=== PATIENT | male | born 1965 | race Caucasian/White ===

== ENCOUNTER 2019-08-14 11:14 | Observation (INO) | payer SELFPAY ==
[2019-08-14] VITALS (7 sets, daily range): BP systolic 111–122; BP diastolic 75–85; PULSE 53–70; RESP 8–18; TEMP 36.2–37.1; O2SAT 98–100; BMI 24.7
--- NOTE | 2019-08-14 12:14 | ED_ITS ---
HPI - General Adult General Chief complaint: Dizziness Stated complaint: black stool dizzy shortness of breath 6 days now Time Seen by Provider: 08/14/19 12:13 Source: patient Mode of arrival: Ambulatory Limitations: no limitations History of Present Illness HPI narrative: Otherwise healthy 53-year-old gentleman presents with positional dizziness and exertional dyspnea. He notes that 5 days ago he had a very black stool had no stool for 2 or 3 days then yesterday had more significant black tarry stool. He has got some generalized abdominal pain were slung the epigastrium. He has no history of GI bleeding, excessive nonsteroidal or aspirin use, he does drink 2-3 drinks a day does not consider it a problem however in the past has considered cutting back. He has not recently taken Pepto-Bismol nor iron supplements.. He denies chest pain, he notes he had an upper respiratory infection about a week ago all symptoms have resolved, no skin rashes no lower extremity edema Related Data Allergies Allergy/AdvReac Type Severity Reaction Status Date / Time No Known Drug Allergies Allergy Verified 08/14/19 11:56 Review of Systems Review of Systems ROS Unobtainable: All systems reviewed & are unremarkable except as noted in HPI and below Patient History Social History Smoking Status: Never smoker Smoking Status: Never smoker alcohol intake frequency: 0-2 drinks per day Substance Use Type: does not use Exam Narrative Exam Narrative: General: Healthy appearing, in no acute distress. Able to give a complete and coherent history. Well-nourished well-developed HEENT: Moist mucous membranes, normal sclera with reactive pupils, Neck: No JVD, supple Respiratory: Lungs are clear to auscultation, no wheezing no rales no rhonchi. Full and symmetrical air movement Cardiac: Regular rate and rhythm, 2/6 diastolic murmur heard along the inferior and apical borders Abdomen: Soft, mild tenderness diffusely with increased tenderness in the ep igastrium. No rebound no guarding. Good bowel tones, no flank pain Skin: Warm and dry, no rashes Neurologic: Grossly neurologically intact with no obvious asymmetries or abnormalities Extremities: No trauma, well perfused Psych: Cooperative, appropriate insight and affect Guaiac positive on rectal exam Initial Vital Signs Initial Vital Signs: Vital Signs Temperature 97.8 F 08/14/19 11:28 Pulse Rate 70 08/14/19 11:28 Respiratory Rate 14 08/14/19 11:28 Blood Pressure 118/78 08/14/19 11:28 Pulse Oximetry 99 08/14/19 11:28 Course Course Course Narrative: With guaiac-positive stool and symptoms as described in the HPI initial presumption is a GI bleed. Order sets as well as IV proton pump inhibitors were started. While attached to the monitors he gets up to the bedside to use a urinal and has a couple of seconds of what looks like either nonsustained V-tach or torsade. He was symptomatic with this. Rhythm strip is incorporated into the chart. Decision to Admit Date: 08/14/19 Decision to Admit time: 12:34 Orders Ordered: ED Orders 08/14/19 12:06 Complete Blood Count AUTO DIFF Stat Comprehensive Metabolic Panel Stat Lipase Stat Magnesium Stat Partial Thromboplastin Time Stat Prothrombin Time INR Stat Type and Screen Stat Pantoprazole Sodium 80 mg/ (Sodium Chloride) 100 mls @ 10 mls/hr IV CONT MARIANNE Last Admin: 08/14/19 12:49 Dose: 8 mg/hr, 10 mls/hr Documented by: JOE Sodium Chloride (Normal Saline 0.9%) 1,000 mls @ 1,000 mls/hr IV BOLUS PRN PRN Reason: Fluid replacement Last Admin: 08/14/19 12:49 Dose: 1,000 mls/hr Documented by: JOE Discontinued Medications Ondansetron HCl (Zofran) 4 mg IV NOW ONE Stop: 08/14/19 12:30 Last Admin: 08/14/19 12:46 Dose: 4 mg Documented by: JOE Pantoprazole Sodium (Protonix) 80 mg IV NOW ONE Stop: 08/14/19 12:30 Last Admin: 08/14/19 12:48 Dose: 80 mg Documented by: JOE Reevaluation(s) Reevaluation #1: Case is reviewed with Dr. Jones. Will consult. Requests NPO. Full admit to medical service Time: 12:39 Reevaluation #2: Labs are reviewed. He is mildly anemic but not needing transfusion. Care was reviewed with the hospitalist, Dr. Candelario who will admit the patient Time: 13:05 Vital Signs Vital signs: Vital Signs - 8 hr 08/14/19 11:28 08/14/19 12:27 Temperature 97.8 F Pulse Rate 70 61 Respiratory Rate 14 16 Blood Pressure 118/78 Blood Pressure [Right Arm] 111/79 Pulse Oximetry 99 100 Medical Decision Making Medical Records Medical records reviewed: Yes I reviewed the patient's medical records. Lab Data Lab results reviewed: Yes I reviewed the patient's lab results. Result diagrams: 08/14/19 12:06 08/14/19 12:06 Labs: Lab Results 08/14/19 08/14/19 08/14/19 Range/Units 12:06 12:06 12:06 WBC 4.1 L (4.5-11.0) X10^3/uL RBC 3.63 L (4.5-5.9) X10^6/uL Hgb 11.3 L (13.5-17.5) g/dL Hct 32.4 L (41-53) % MCV 89.4 (80-100) fL MCH 31.3 (26-34) PG MCHC 35.0 (30-36) % RDW 13.1 (11.6-14.8) % Plt Count 208 (150-400) X10^3/uL Neut % (Auto) 62.0 (50-75) % Lymph % (Auto) 24.9 L (25-40) % [place] % (Auto) 8.3 (3-14) % Eos % (Auto) 4.1 H (2-4) % Baso % (Auto) 0.7 (0-2) % Neut # (Auto) 2500 (4317-2951) /uL Lymph # (Auto) 1000 L (7936-8967) /uL [place] # (Auto) 300 (0-900) /uL Eos # (Auto) 200 (0-450) /uL Baso # (Auto) 0 (0-100) /uL PT 11.3 (10.1-12.7) SECONDS INR 1.0 (0.9-1.3) APTT 29 (26.4-36.2) SECONDS Sodium 140 (137-145) mmol/L Potassium 4.4 (3.4-5.1) mmol/L Chloride 107 (98-107) mmol/L Carbon Dioxide 26 (22-32) mmol/L BUN 17 (9-20) mg/dL Creatinine 0.90 (0.66-1.25) mg/dL Estimated GFR > 60.0 (>60) mL/min BUN/Creatinine Ratio 18.9 (6-22) Glucose 103 H (70-100) mg/dL Calcium 9.0 (8.4-10.2) mg/dL Magnesium 2.0 (1.6-2.3) mg/dL Total Bilirubin 0.8 (0.2-1.3) mg/dL AST 43 (17-59) IU/L ALT 31 (<50) IU/L Alkaline Phosphatase 41 (38-126) U/L Total Protein 6.6 (6.3-8.2) g/dL Albumin 4.0 (3.5-5.0) g/dL Globulin 2.6 (1.7-4.1) g/dL Albumin/Globulin Ratio 1.5 (1.0-2.8) Lipase 99 (23-300) U/L ECG Data Attestation: I personally reviewed and interpreted this ECG as follows: Interpretation: EKG reveals sinus rhythm at a rate of 66. No acute ischemic changes. Normal axis and intervals Discharge Plan Departure Patient Disposition: Admitted as Observation Clinical Impression: Acute upper gastrointestinal bleeding Referrals: En Menchaca MD [Primary Care Provider] -
[2019-08-14 12:39] LABS: Add Manual Diff / Slide Review NO; Basophils Absolute Auto 0 /uL (0-100); Basophils Percent Auto 0.7 % (0-2); Eosinophils Absolute Auto 200 /uL (0-450); Eosinophils Percent Auto 4.1 % (2-4); Hematocrit 32.4 % (41-53); Hemoglobin 11.3 g/dL (13.5-17.5); Lymphocytes Absolute Auto 1000 /uL (1100-4500); Lymphocytes Percent Auto 24.9 % (25-40); Mean Corpuscular Hemoglobin 31.3 PG (26-34); Mean Corpuscular Volume 89.4 fL (80-100); Monocytes Absolute Auto 300 /uL (0-900); Monocytes Percent Auto 8.3 % (3-14); Neutrophils Absolute Auto 2500 /uL (1500-7000); Platelet Count 208 X10^3/uL (150-400); Red Blood Cell Count 3.63 X10^6/uL (4.5-5.9); Red Cell Distribution Width 13.1 % (11.6-14.8); White Blood Cell Count 4.1 X10^3/uL (4.5-11.0)
[2019-08-14 12:40] LABS: Prothrombin Time 11.3 SECONDS (10.1-12.7)
[2019-08-14 12:43] LABS: PTT Partial Thromboplastin Tim 29 SECONDS (26.4-36.2)
[2019-08-14 12:46] LABS: Alanine Aminotransferase 31 IU/L (<50); Albumin Globulin Ratio 1.5 (1.0-2.8); Alkaline Phosphatase 41 U/L (38-126); Aspartate Aminotransferase 43 IU/L (17-59); BUN Creatinine Ratio 18.9 (6-22); Bilirubin Total 0.8 mg/dL (0.2-1.3); Blood Urea Nitrogen 17 mg/dL (9-20); Carbon Dioxide 26 mmol/L (22-32); Chloride 107 mmol/L (98-107); Estimated Glomerular Filt Rate > 60.0 mL/min (>60); Globulin 2.6 g/dL (1.7-4.1); Glucose 103 mg/dL (70-100); HEMOLYSIS 22 (0-50); Lipase 99 U/L (23-300); Potassium 4.4 mmol/L (3.4-5.1); Sodium 140 mmol/L (137-145); Total Protein 6.6 g/dL (6.3-8.2)
[2019-08-14] MEDS: ONDANSETRON 4 MG/2 ML INJ IV (12:46)
[2019-08-14] MEDS: PANTOPRAZOLE 40 MG VIAL 80 MG IV (12:48)
[2019-08-14] MEDS: PANTOPRAZOLE 80 MG in SODIUM CHLORIDE 0.9% 100 ML 10 ML IV (12:49)
[2019-08-14] MEDS: SODIUM CHLORIDE 0.9% 1,000 ML 1000 ML IV (12:49)
--- NOTE | 2019-08-14 14:49 | PC.NURSE ---
Day shift: Pt on AC unit at approx 1440 from ED. Oriented to room and call light. High fall risk for now. Protocols in place and Pt agrees to not get OOB w/o help from staff. Denies chest pain. Pt on tele. IV protonix infusing (from ED care). IV patent. SO in room for support.
--- NOTE | 2019-08-14 15:28 | P.HP_ITS ---
History of Present Illness History of Present Illness Date Patient Seen: 08/14/19 Chief complaint: black stool dizzy shortness of breath 6 days now Narrative: The patient is a 53-year-old male with no prior past medical history who presents with 5 day history of black tarry stool, lightheadedness, shortness of breath. Patient states that on Friday 5 days prior to admission he had 1 dark stool. Two days later he had no further BM. Two days ago he began having to dark stools approximately twice daily. Patient also reported feeling lightheaded with movement. He complained of being short of breath when going up a flight of stairs. Because of the dizziness shortness of breath and stools he presented to the hospital for evaluation. Patient reports about a week ago having a fever which resolved. He also reports having a sore throat. He has had no hematemesis, or bright red blood per rectum, he has no history of gastric ulcers. The patient does not use excessive ibuprofen, and Aleve, Advil. He has not been taking Pepto-Bismol. Patient does admit to drinking 1-2 drinks daily and has had no symptom to suggest alcohol withdrawal. The patient was seen and evaluated in the emergency room. He was guaiac positive, hemoglobin was 11 hematocrit 32. Patient is admitted to the hospital at this time for treatment and evaluation of probable upper GI bleed. Patient History Family & Social History Family History (Updated 08/14/19 @ 15:33 by Luiza Candelario MD) Father Lymphoma Mother Hypertension Diabetes mellitus Safety & Behavioral: Feels Safe in Current Yes Environment Been Physically Hurt or No Threatened By a Person Tobacco & Substance use: Smoking Status Never smoker alcohol intake frequency 0-2 drinks per day Substance Use Type does not use Meds Home Medications and Allergies Allergies Allergy/AdvReac Type Severity Reaction Status Date / Time No Known Drug Allergies Allergy Verified 08/14/19 11:56 Review of Systems Review of Systems ROS Unobtainable: All systems reviewed & are unremarkable except as noted in HPI and below Exam Vital Signs (past 8 hours): - 08/14/19 11:28 08/14/19 12:27 08/14/19 13:00 Temperature 97.8 F Pulse Rate 70 61 53 L Respiratory Rate 14 16 8 L Blood Pressure 118/78 Blood Pressure [Right Arm] 111/79 113/80 Pulse Oximetry 99 100 100 08/14/19 14:00 08/14/19 14:45 Temperature 97.2 F L Pulse Rate 55 L 56 L Respiratory Rate 16 18 Blood Pressure 122/85 Blood Pressure [Right Arm] 115/81 Pulse Oximetry 100 100 Oxygen Delivery Method Room Air Oxygen Flow Rate 0 Narrative Exam Narrative: Pleasant male resting comfortably in no obvious distress HEENT: Normocephalic atraumatic, extraocular muscles are intact, oropharynx is clear, mucosal membranes are somewhat pale. Neck is supple, there is no submandibular or anterior cervical adenopathy. Lungs: Clear to auscultation Cardiac exam: Regular rate and rhythm normal S1-S2 Abdomen: Scaphoid soft mildly tender in the midepigastric area, no palpable masses, no rebound tenderness, no board-like rigidity, no hepatosplenomegaly noted Extremities: No edema Neuro exam: Cranial nerves 2-12 are intact, strength is symmetric and equal, sensation is grossly intact, reflexes are equal, gait is not assessed Psychiatric exam: Patient is awake and alert, answers questions appropriately, has no evidence of delusions or hallucinations. Skin exam: No lesion Objective Labs Result Diagrams: 08/14/19 12:06 08/14/19 12:06 Labs: Laboratory Results - last 24 hr 08/14/19 08/14/19 08/14/19 12:06 12:06 12:06 WBC 4.1 L RBC 3.63 L Hgb 11.3 L Hct 32.4 L MCV 89.4 MCH 31.3 MCHC 35.0 RDW 13.1 Plt Count 208 Neut % (Auto) 62.0 Lymph % (Auto) 24.9 L [place] % (Auto) 8.3 Eos % (Auto) 4.1 H Baso % (Auto) 0.7 Neut # (Auto) 2500 Lymph # (Auto) 1000 L [place] # (Auto) 300 Eos # (Auto) 200 Baso # (Auto) 0 PT 11.3 INR 1.0 APTT 29 Sodium 140 Potassium 4.4 Chloride 107 Carbon Dioxide 26 BUN 17 Creatinine 0.90 Estimated GFR > 60.0 BUN/Creatinine Ratio 18.9 Glucose 103 H Calcium 9.0 Magnesium 2.0 Total Bilirubin 0.8 AST 43 ALT 31 Alkaline Phosphatase 41 Total Protein 6.6 Albumin 4.0 Globulin 2.6 Albumin/Globulin Ratio 1.5 Lipase 99 Blood Type Antibody Screen 12/14/19 12:06 WBC RBC Hgb Hct MCV MCH MCHC RDW Plt Count Neut % (Auto) Lymph % (Auto) [place] % (Auto) Eos % (Auto) Baso % (Auto) Neut # (Auto) Lymph # (Auto) [place] # (Auto) Eos # (Auto) Baso # (Auto) PT INR APTT Sodium Potassium Chloride Carbon Dioxide BUN Creatinine Estimated GFR BUN/Creatinine Ratio Glucose Calcium Magnesium Total Bilirubin AST ALT Alkaline Phosphatase Total Protein Albumin Globulin Albumin/Globulin Ratio Lipase Blood Type A Positive Antibody Screen Negative Assessment & Plan Assessment and plan (1) Acute upper gastrointestinal bleeding: Problem details: 53-year-old male admitted to the hospital with symptomatic upper GI bleeding. Patient has had 5 days of dark hours stool, shortness of breath, and dizziness. Suspect the patient has ongoing upper GI bleeding. He also has some mid epigastric pain. His hemoglobin and hematocrit are within normal limits. He does not require transfusion at this time. However the patient is highly symptomatic. We will obtain serial hematocrits, continue with the proton pump inhibitor, continue with IV hydration. General surgery has been consulted and plans are underway for the patient to have upper endoscopy tomorrow. He will be kept NPO. The patient is a full code and will note that his record accordingly. Current visit: Yes Status: Acute
[2019-08-14] MEDS: DEXTROSE 5%-0.9% NS 1,000 ML 100 ML IV (16:09)
[2019-08-14 17:53] LABS: Add Manual Diff / Slide Review NO; Basophils Absolute Auto 0 /uL (0-100); Basophils Percent Auto 0.8 % (0-2); Eosinophils Absolute Auto 100 /uL (0-450); Eosinophils Percent Auto 2.7 % (2-4); Hematocrit 31.5 % (41-53); Hemoglobin 10.9 g/dL (13.5-17.5); Lymphocytes Absolute Auto 1300 /uL (1100-4500); Lymphocytes Percent Auto 26.3 % (25-40); Mean Corpuscular HGB Conc 34.5 % (30-36); Mean Corpuscular Hemoglobin 30.9 PG (26-34); Mean Corpuscular Volume 89.8 fL (80-100); Monocytes Absolute Auto 400 /uL (0-900); Monocytes Percent Auto 7.4 % (3-14); Neutrophils Absolute Auto 3000 /uL (1500-7000); Neutrophils Percent Auto 62.8 % (50-75); Platelet Count 193 X10^3/uL (150-400); Red Blood Cell Count 3.51 X10^6/uL (4.5-5.9); Red Cell Distribution Width 13.1 % (11.6-14.8); White Blood Cell Count 4.8 X10^3/uL (4.5-11.0)
[2019-08-14 18:14] LABS: HEMOLYSIS < 15 (0-50); Iron 50 ug/dL (49-181)
[2019-08-14 18:24] LABS: Percent Iron Saturation 16 % (20-50); Total Iron Binding Capacity 319 ug/dL (261-462); Transferrin 242 mg/dL (206-381)
--- NOTE | 2019-08-14 19:06 | PC.NURSE ---
Assumed care of pt at 1500. Pt resting in bed during bedside hand-off. Rec call from ICU stating HR dips down to 40's. Upon assessing pt HR mid 50's. HR is now presently 57; Pt at rest in bed. Pt also reports he is a runner. Dizziness resolved. Calm and cooperative with care. Using urinal to void. IVF infusing per orders. NPO. Oral care set-up. Pt able to complete oral care independently. Calling appropriately for needs. SCD's on per orders.
[2019-08-15] VITALS (12 sets, daily range): BP systolic 95–119; BP diastolic 55–83; PULSE 53–80; RESP 9–18; TEMP 36.4–36.9; O2SAT 92–99
--- NOTE | 2019-08-15 | PATH_ITS ---
[facility] Accession Number: [id number] . 01 Material submitted: . gastrointestinal site - ANTRUM . 01 Clinical history: . BLACK STOOL. DIZZY. SHORTNESS OF BREATH 6 DAYS NOW. . 02 Diagnosis: Antrum, Biopsy: Gastric antral mucosa with mild chronic inflammation. Negative for Helicobacter organisms by immunohistochemistry. Negative for intestinal metaplasia. Negative for dysplasia or malignancy. [facility] 08/18/2019 1416 Local . 02 Electronically signed: . Akhil Babcock MD, PhD, Pathologist NPI- [id number] . 01 Gross description: . ANTRUM: Received in formalin is 1 fragment(s) of golden, soft tissue measuring 0.2 x 0.2 x 0.2 cm submitted entirely in 1 cassette(s) /[facility] 08/16/20192005 Local . 02 Microscopic: . An immunohistochemical stain was performed to evaluate for Helicobacter organisms and is negative. The control stain showed appropriate reactivity. . * This test was developed and its performance characteristics determined by [facility]. It has not been cleared or approved by the U.S. Food and Drug Administration. The FDA has determined that such clearance or approval is not necessary. This test is used for clinical purposes. It should not be regarded as investigational or for research. . 02 Pathologist provided ICD-10: K29.70 . 02 CPT . 013143, [id number] Performed at: 01 [facility] [address], [place], [place] [id number] MD Jorgito Purvis MD Phone: [phone] Performed at: 02 [facility] [place] [address] [place], [place] [id number] MD Nina Fuentes MD Phone: [phone]
[2019-08-15] MEDS: DEXTROSE 5%-0.9% NS 1,000 ML 100 ML IV ×2 (01:19→11:58)
[2019-08-15 06:19] LABS: Hematocrit 30.6 % (41-53); Mean Corpuscular HGB Conc 35.8 % (30-36); Mean Corpuscular Hemoglobin 31.6 PG (26-34); Mean Corpuscular Volume 88.4 fL (80-100); Platelet Count 194 X10^3/uL (150-400); Red Blood Cell Count 3.46 X10^6/uL (4.5-5.9); Red Cell Distribution Width 13.2 % (11.6-14.8); White Blood Cell Count 4.1 X10^3/uL (4.5-11.0)
--- NOTE | 2019-08-15 06:32 | PC.NURSE ---
Pt is AxOx3, VSS, denies pain. Reports some dizziness overnight; instructed not to get OOB without assistance. Kept NPO for EGD in AM No BMs overnight. D5NS@100mL/hr Protonix gtt @10mL/hr b/l SCDs on Tele: SB
[2019-08-15 06:39] LABS: Blood Urea Nitrogen 11 mg/dL (9-20); Calcium 8.5 mg/dL (8.4-10.2); Carbon Dioxide 26 mmol/L (22-32); Chloride 108 mmol/L (98-107); Estimated Glomerular Filt Rate > 60.0 mL/min (>60); Glucose 105 mg/dL (70-100); HEMOLYSIS < 15 (0-50); Potassium 3.9 mmol/L (3.4-5.1); Sodium 140 mmol/L (137-145)
[2019-08-15] MEDS: PANTOPRAZOLE 80 MG in SODIUM CHLORIDE 0.9% 100 ML 10 ML IV ×2 (09:38)
--- NOTE | 2019-08-15 10:01 | PC.NURSE ---
Addendum entered by Sandi Covarrubias R.N. 08/15/19 12:00: Patient back from EGD alert, oriented denies pain and nausea. Addendum entered by Sandi Covarrubias R.N. 08/15/19 10:43: Patient taken down for EGD. Original Note: Patient alert, oriented, denies pain, nausea and shortness of breath. SBA to chair, gait steady denies dizziness. Dr Leong in to assess patient.
[2019-08-15] MEDS: LACTATED RINGERS 1,000 ML 42 ML IV (10:30)
--- NOTE | 2019-08-15 10:47 | PM.OP.ENDO ---
Operative Date/Time/Diagnoses Date of procedure: 08/15/19 Time of procedure: 10:48 Pre-op diagnosis: Upper GI bleeding Post-op diagnosis: other (No evidence of upper GI bleeding or source of upper GI bleeding) Procedure & Clinicians Study performed: Esophagogastric duodenoscopy with gastric biopsy for H pylori Same procedure as scheduled: Yes Surgeon: Kevin Walsh Procedure Notes SCOAP/Timeout: This was done Procedure in detail: I was asked see the patient in consultation with a 1 week history of painless melena. Patient no prior history of ulcer disease is not taking medications to contribute to gastric or upper GI bleeding. After informed consent I performed esophagogastroduodenoscopy today. The findings are normal esophagus normal stomach normal pylorus normal duodenum to the 2nd portion no findings of any blood old blood fresh blood or any GI bleeding source. Procedure the patient was given a general endotracheal anesthetic he was properly identified during surgical pause flexible fiberoptic gastroscope inserted trans orally from the hypopharynx into the 2nd portion of the duodenum the esophagus is normal the EG junction is at 40 cm retroflex thing the scope reveals a normal gastric side of the EG junction entire stomach is normal there is no blood within the gastric lumen the pyloric channel is normal there is no blood there there is no duodenal ulcer in the 1st or 2nd portion the duodenum or the duodenal bulb on retrieving the scope I did a gastric biopsy for H pylori in the gastric antrum the procedure was well tolerated the patient needs a colonoscopy to evaluate for possible cecal carcinoma Scope withdrawal time: 5 Sedation minutes: 15 Specimen(s): other (Gastric biopsy or a for H pylori) Complications: none Post-procedure Disposition: PACU
--- NOTE | 2019-08-15 11:00 | SUR.PHASEI ---
Assumed care at 1059. VS stable.
[2019-08-15] MEDS: BENZOCAINE/MENTHOL 1 LOZ PKT 1 EACH PO (11:15)
--- NOTE | 2019-08-15 11:18 | SUR.PHASEI ---
Patient reported sore thoat improving
--- NOTE | 2019-08-15 11:42 | SUR.PHASEI ---
Patient transferred to the floor. Report to Sandi. VS stable. IV saline locked.
--- NOTE | 2019-08-15 11:42 | SUR.PHASEI ---
Patient swallowed ice/water without difficulty
[2019-08-15] MEDS: BISACODYL 5 MG TABLET PO (13:11)
[2019-08-15] MEDS: PEG3350/SOD SULF,BICARB,CL/KCL 4,000 ML SOLUTION 4000 ML PO (13:34)
[2019-08-15] MEDS: SODIUM CHLORIDE 0.9% 1,000 ML 100 ML IV ×2 (13:34→22:37)
[2019-08-15] MEDS: IRON SUCROSE 200 MG in SODIUM CHLORIDE 0.9% 100 ML 220 ML IV (14:05)
--- NOTE | 2019-08-15 14:49 | PM.PN.1 ---
Subjective Subjective Date Patient Seen: 08/15/19 Interval history: The patient is a 53-year-old male with no prior medical history who presented to the hospital with dizziness shortness of breath, and fatigue. Patient was found to have guaiac-positive melanotic stool. He reported having a week of painless melena. The patient has had no hematemesis since being in the hospital. He has had past no further stool. He underwent an upper endoscopy today which was negative for any source of GI bleeding. He has been receiving IV fluids and has had some delusional drop in his hemoglobin. Iron studies reveal mild iron deficiency anemia. The patient is now receiving IV iron and currently undergoing colon prep for colonoscopy to rule out a cecal carcinoma tomorrow. Patient reports he remains dizzy although it's improved. Exam Vital Signs (past 8 hours): - 08/15/19 07:34 08/15/19 10:52 08/15/19 10:57 Temperature 98.2 F Pulse Rate 53 L 76 72 Respiratory Rate 14 13 9 L Blood Pressure 107/68 100/62 95/67 Pulse Oximetry 98 96 96 08/15/19 11:02 08/15/19 11:07 08/15/19 11:17 Temperature Pulse Rate 80 69 65 Respiratory Rate 10 L 11 L 10 L Blood Pressure 105/75 110/76 110/79 Pulse Oximetry 92 97 98 08/15/19 11:36 Temperature Pulse Rate 61 Respiratory Rate 16 Blood Pressure 111/79 Pulse Oximetry 97 Oxygen Delivery Method Room Air Oxygen Flow Rate 0 Narrative Exam Narrative: Pleasant male lying in bed in no obvious distress Lungs: Clear to auscultation Cardiac exam: Regular rate and rhythm normal S1-S2 Abdomen: Soft nondistended, mild tenderness in the right upper quadrant, no palpable masses no hepatosplenomegaly, no board-like rigidity Extremities: No edema Skin exam: No lesion Objective Labs Result Diagrams: 08/15/19 06:00 08/15/19 06:00 Labs: Laboratory Results - last 24 hr 08/14/19 08/14/19 08/15/19 17:40 17:40 06:00 WBC 4.8 RBC 3.51 L Hgb 10.9 L Hct 31.5 L MCV 89.8 MCH 30.9 MCHC 34.5 RDW 13.1 Plt Count 193 Neut % (Auto) 62.8 Lymph % (Auto) 26.3 [place] % (Auto) 7.4 Eos % (Auto) 2.7 Baso % (Auto) 0.8 Neut # (Auto) 3000 Lymph # (Auto) 1300 [place] # (Auto) 400 Eos # (Auto) 100 Baso # (Auto) 0 Sodium 140 Potassium 3.9 Chloride 108 H Carbon Dioxide 26 BUN 11 Creatinine 1.00 Estimated GFR > 60.0 BUN/Creatinine Ratio 11.0 Glucose 105 H Calcium 8.5 Iron 50 TIBC 319 % Saturation 16 L Transferrin 242 08/15/19 06:00 WBC 4.1 L RBC 3.46 L Hgb 11.0 L Hct 30.6 L MCV 88.4 MCH 31.6 MCHC 35.8 RDW 13.2 Plt Count 194 Neut % (Auto) Lymph % (Auto) [place] % (Auto) Eos % (Auto) Baso % (Auto) Neut # (Auto) Lymph # (Auto) [place] # (Auto) Eos # (Auto) Baso # (Auto) Sodium Potassium Chloride Carbon Dioxide BUN Creatinine Estimated GFR BUN/Creatinine Ratio Glucose Calcium Iron TIBC % Saturation Transferrin Assessment & Plan Assessment & Plan narrative: Impression 1. Melanotic stool, initially thought to be upper GI bleeding, however EGD is negative for any source of upper GI bleeding patient does have mild iron deficiency anemia. Suspect ongoing slow bleeding possibly from the colon. Patient remains symptomatic. He will continue on IV hydration, will repeat his hematocrit and hemoglobin today. His proton pump inhibitor has been discontinued as he has no source of upper GI bleeding. Telemetry has been discontinued as well. Plan for today: Continue colon prep, repeat hemoglobin hematocrit, continue IV hydration, clear liquid diet.
[2019-08-15] MEDS: ACETAMINOPHEN 325 MG TABLET 650 MG PO (15:42)
--- NOTE | 2019-08-15 16:06 | CM.DANOTE ---
Discharge Planning/Care Management DCP: assessment: case received, EMR reviewed. Discussed in Team Rounds. Pt is a 53 year old male who admitted yesterday afternoon to care of hospitalist team. PCP: listed as Dr. Menchaca: unclear if current and Dr. Candelario has continued to follow pt today. Pt was admitted with a s/s GI bleed and Dr. Candelario noted in Rounds that surgeon Dr. Walsh was taking pt to surgery for an EGD. A check in later after Rounds showed pt off the floor for the EGD. Payer: Commercial Insurance. Admission status: OBS: per [facility] ALEX Nuñez. A check in now of Dr. Candelario's progress note reveals that pt is now undergoing colon prep for a colonoscopy tomorrow for rule out cecal carcinoma. Due to lateness of hour must defer a meeting with pt to the DCP team on for tomorrow. Status: Active Protocol: Document 08/15/19 16:04 ITV (Rec: 08/15/19 16:06 ITV [id number]) Discharge Planning Assessment Advance Directives? No History Provided By Medical Record Prior Living Arrangements House Household Members spouse Independent with ADL's Yes Is patient alert and oriented? Yes Review Status In Process
[2019-08-15 17:56] LABS: Hematocrit 34.6 % (41-53); Hemoglobin 11.8 g/dL (13.5-17.5)
--- NOTE | 2019-08-15 19:50 | PC.NURSE ---
Late entry 1700 - Pt reports headache pain 8/10 not relieved by tylenol. Requested stronger medication from Dr Candelario. TO Dr Candelario reports she will order [place] 1900 - Pt reports headache decreasing now and tolerable after drinking some broth. Denies offer for [place]. TM
[2019-08-15] MEDS: ACETAMINOPHEN 325 MG TABLET 975 MG PO (22:38)
[2019-08-16] VITALS: BP 122/78; PULSE 52; RESP 16; TEMP 36.8; O2SAT 97
[2019-08-16 04:00] VITALS: BP 106/69; PULSE 53; RESP 16; TEMP 36.6; O2SAT 98
[2019-08-16 06:33] LABS: Blood Urea Nitrogen 8 mg/dL (9-20); Calcium 8.3 mg/dL (8.4-10.2); Carbon Dioxide 28 mmol/L (22-32); Chloride 107 mmol/L (98-107); Estimated Glomerular Filt Rate > 60.0 mL/min (>60); Glucose 95 mg/dL (70-100); HEMOLYSIS < 15 (0-50); Potassium 3.5 mmol/L (3.4-5.1); Sodium 141 mmol/L (137-145)
[2019-08-16 06:38] LABS: Add Manual Diff / Slide Review NO; Basophils Absolute Auto 0 /uL (0-100); Basophils Percent Auto 0.3 % (0-2); Eosinophils Absolute Auto 200 /uL (0-450); Eosinophils Percent Auto 3.6 % (2-4); Hematocrit 29.4 % (41-53); Hemoglobin 10.5 g/dL (13.5-17.5); Lymphocytes Absolute Auto 1200 /uL (1100-4500); Mean Corpuscular HGB Conc 35.8 % (30-36); Mean Corpuscular Hemoglobin 31.7 PG (26-34); Mean Corpuscular Volume 88.5 fL (80-100); Monocytes Absolute Auto 300 /uL (0-900); Monocytes Percent Auto 7.4 % (3-14); Neutrophils Absolute Auto 2700 /uL (1500-7000); Neutrophils Percent Auto 61.7 % (50-75); Platelet Count 187 X10^3/uL (150-400); Red Blood Cell Count 3.32 X10^6/uL (4.5-5.9); Red Cell Distribution Width 13.2 % (11.6-14.8); White Blood Cell Count 4.4 X10^3/uL (4.5-11.0)
[2019-08-16] MEDS: SODIUM CHLORIDE 0.9% 1,000 ML 100 ML IV (07:37)
--- NOTE | 2019-08-16 07:55 | PC.NURSE ---
Addendum entered by Sandi Covarrubias R.N. 08/16/19 14:04: Went over discharge orders and instructions with patient,questions answered. NO rx for new meds ordered, patient had all belongings. Addendum entered by Sandi Covarrubias R.N. 08/16/19 13:45: Patient back from colonoscopy, brought up by wheelchair, alert, oriented denies pain, nausea. Eating general diet without difficulties. Denies dizziness. Dr Michaud in to see patient, patient being discharged. Original Note: Patient up to bathroom, had liquid stool, light brown in color. Denies pain and dizziness.
[2019-08-16 08:00] VITALS: BP 109/75; PULSE 61; RESP 16; TEMP 36.6; O2SAT 97
[2019-08-16 10:27] VITALS: BP 121/78; PULSE 55; RESP 16; TEMP 36.3; O2SAT 100; BMI 24.7
[2019-08-16] MEDS: SODIUM CHLORIDE 0.9% 1,000 ML 200 ML IV (11:15)
--- NOTE | 2019-08-16 11:37 | P.PN_ITS ---
Subjective Subjective Date Patient Seen: 08/16/19 Time Patient Seen: 11:37 Interval history: No blood per rectum or hematemesis over the past 24 hours. No nausea vomiting or abdominal pain. I reviewed his EGD report from yesterday which was negative. Exam Vital Signs (past 8 hours): - 08/16/19 04:00 08/16/19 08:00 08/16/19 10:27 Temperature 97.8 F 97.9 F 97.4 F L Pulse Rate 53 L 61 55 L Respiratory Rate Blood Pressure 106/69 109/75 121/78 Pulse Oximetry 98 97 100 Oxygen Delivery Method Room Air Oxygen Flow Rate 0 Narrative Exam Narrative: General-no acute distress, well nourished HEENT-moist mucous membranes, no scleral icterus Neck-supple, no lymphadenopathy Chest- non labored respirations, clear to auscultation bilaterally Cardiac-regular rate no peripheral edema Abdomen-soft, nontender, non distended Extremities-warm, well perfused Neurological-alert and oriented, no focal deficits Objective Labs Result Diagrams: 08/16/19 06:02 08/16/19 06:02 Labs: Laboratory Results - last 24 hr 08/15/19 08/16/19 08/16/19 17:50 06:02 06:02 WBC 4.4 L RBC 3.32 L Hgb 11.8 L 10.5 L Hct 34.6 L 29.4 L MCV 88.5 MCH 31.7 MCHC 35.8 RDW 13.2 Plt Count 187 Neut % (Auto) 61.7 Lymph % (Auto) 27.0 [place] % (Auto) 7.4 Eos % (Auto) 3.6 Baso % (Auto) 0.3 Neut # (Auto) 2700 Lymph # (Auto) 1200 [place] # (Auto) 300 Eos # (Auto) 200 Baso # (Auto) 0 Sodium 141 Potassium 3.5 Chloride 107 Carbon Dioxide 28 BUN 8 L Creatinine 1.00 Estimated GFR > 60.0 BUN/Creatinine Ratio 8.0 Glucose 95 Calcium 8.3 L Assessment & Plan Assessment and plan (1) Acute upper gastrointestinal bleeding: Problem details: 53-year-old male admitted to the hospital with symptomatic upper GI bleeding. Patient has had 5 days of dark hours stool, shortness of breath, and dizziness. Suspect the patient has ongoing upper GI bleeding. He also has some mid epigastric pain. His hemoglobin and hematocrit are within normal limits. He does not require transfusion at this time. However the patient is highly symptomatic. We will obtain serial hematocrits, continue with the proton pump inhibitor, continue with IV hydration. General surgery has been consulted and plans are underway for the patient to have upper endoscopy tomorrow. He will be kept NPO. The patient is a full code and will note that his record accordingly. Current visit: Yes Status: Acute Assessment & Plan narrative: 53-year-old male with melanotic stools and a negative EGD yesterday hemodynamically stable not requiring transfusion hematocrit stable. Will perform colonoscopy. We discussed the risks of procedure including misdiagnosis bleeding infection perforation need for further procedure. His questions have been answered and he is in agreement with this plan.
--- NOTE | 2019-08-16 11:50 | SUR.OPER ---
GLASSES IN LABELED BAG TO PACU WITH PATIENT
[2019-08-16] MEDS: fentaNYL 250 MCG/5 ML INJ IV (12:04)
--- NOTE | 2019-08-16 12:05 | PM.OP.ENDO ---
Operative Date/Time/Diagnoses Date of procedure: 08/16/19 Time of procedure: 12:05 Pre-op diagnosis: GI bleed Post-op diagnosis: same Procedure & Clinicians Study performed: Colonoscopy Same procedure as scheduled: Yes Indications: 53-year-old male admitted to hospital with melanotic stools underwent an EGD yesterday which was normal and presents today for diagnostic colonoscopy. Hemodynamically stable not require transfusion. Surgeon: Kris Weeks Procedure Notes SCOAP/Timeout: Perform Procedure in detail: Patient placed in left lateral decubitus position. Time out was performed. Procedural sedation was administered with Versed and Fentanyl. A rectal exam demonstrated no external hemorrhoids no internal masses. Colonoscopy scope was placed into the rectum and advanced through the colon to the cecum. The ileocecal valve was identified. The scope was then slowly withdrawn examining colon thoroughly in all directions. The colonoscopy was notable for the following 1. No masses or polyps 2. No evidence of bleeding. 3. Sigmoid diverticulosis. Scope withdrawal time: 7 Sedation minutes: 21 Findings: diverticulosis Complications: none Impression: Diverticulosis. Post-procedure Recommendations: Colonscopy in 10 years
[2019-08-16] MEDS: MIDAZOLAM 5 MG/5 ML VIAL IV (12:06)
[2019-08-16 12:12] VITALS: BP 88/41; PULSE 67; RESP 22; O2SAT 100
[2019-08-16 12:17] VITALS: BP 111/74; PULSE 66; RESP 15; O2SAT 100
--- NOTE | 2019-08-16 12:55 | P.DS_ITS ---
History of Present Illness History of Present Illness Date Patient Seen: 08/14/19 Chief complaint: black stool dizzy shortness of breath 6 days now Narrative: Written by Dr. Candelario: The patient is a 53-year-old male with no prior past medical history who presents with 5 day history of black tarry stool, lightheadedness, shortness of breath. Patient states that on Friday 5 days prior to admission he had 1 dark stool. Two days later he had no further BM. Two days ago he began having to dark stools approximately twice daily. Patient also reported feeling lightheaded with movement. He complained of being short of breath when going up a flight of stairs. Because of the dizziness shortness of breath and stools he presented to the hospital for evaluation. Patient reports about a week ago having a fever which resolved. He also reports having a sore throat. He has had no hematemesis, or bright red blood per rectum, he has no history of gastric ulcers. The patient does not use excessive ibuprofen, and Aleve, Advil. He has not been taking Pepto-Bismol. Patient does admit to drinking 1-2 drinks daily and has had no symptom to suggest alcohol withdrawal. The patient was seen and evaluated in the emergency room. He was guaiac positive, hemoglobin was 11 he matocrit 32. Patient is admitted to the hospital at this time for treatment and evaluation of probable upper GI bleed. Discharge Providers Provider Date of admission: 08/14/19 13:51 Discharge Date: 08/16/19 Primary care physician: En Menchaca MD Consults: 08/15/19 09:59 Consult to Physician Routine Comment: Consulting Provider: Kevin Walsh Reason for consultation: gi bleed Has provider been notified: Yes 08/15/19 10:08 Consult to General Surgery Routine Comment: Consulting Provider: Kevin Walsh Reason for consultation: egd Discharge provider: Etelvina Michaud DO Summary Hospital Course Discharge Diagnosis: 1. Acute GI bleed, present on admission. Resolved. 2. Acute blood loss and iron deficiency anemia, present on admission. Active. Hospital Course: Marcus Le is a 53-year-old male with no prior past medical history who presented to the ED with 5 day history of black tarry stool, lightheadedness, shortness of breath. 1. Acute GI bleed, present on admission. Resolved. -Patient presented with 5 day history of black tarry stool, lightheadedness, and shortness of breath. -Initially thought to be upper GI bleeding, however, EGD was negative for any source of upper GI bleeding. Suspect ongoing slow bleeding possibly from the colon. Patient remains symptomatic. -Continued IV fluid hydration until adequately hydrated then discontinued. -Discontinued PPI as he has no source of upper GI bleeding. -Telemetry has been discontinued as patient has a very slow bleed and is hemodynamically stable. -Consulted general Surgery, Dr. Walsh, who performed EGD which was negative. Dr. Weeks performed colonoscopy which was negative for source of GI bleed and only abnormality was sigmoid diverticulosis. Recommend outpatient referral to GI for possible pill endoscopy and further evaluation of melena. May also want to consider other etiologies of shortness of breath and lightheadedness such as cardiac. 2. Acute blood loss and iron deficiency anemia, present on admission. Active. -Initial hemoglobin and hematocrit 11.3 and 32.4. Trended down to 10.5 likely hemodilutional as he has had no further melena and received IV fluids as above. -Iron studies revealed mild iron deficiency and patient received Venofer 200 mg IV x 1. Exam Vital Signs (past 8 hours): - 08/16/19 08:00 08/16/19 10:27 08/16/19 12:12 Temperature 97.9 F 97.4 F L Pulse Rate 61 55 L 67 Respiratory Rate 16 16 22 Blood Pressure 109/75 121/78 88/41 L Pulse Oximetry 97 100 100 08/16/19 12:17 Temperature Pulse Rate 66 Respiratory Rate 15 Blood Pressure 111/74 Pulse Oximetry 100 Oxygen Delivery Method Room Air Oxygen Flow Rate 0 Narrative Exam Narrative: General: Middle-aged gentleman sitting in bed and in no acute distress, well- developed, well-nourished, appropriately interactive. HEENT: Normocephalic, atraumatic. External ears without defect. Pupils equal, round, and reactive to light. Anicteric sclerae, moist conjunctivae, and no lid lag. Neck: Supple with full range of motion. No lymphadenopathy or thyromegaly. Cardiovascular: Regular rate and rhythm without murmurs, rubs, or gallops appreciated. Pulmonary: Clear to auscultation bilaterally without crackles, wheezes, or rhonchi. Normal respiratory effort with no use of accessory muscles. Abdomen: Soft, bowel sounds present, nontender, nondistended. No hepatosplenomegaly or masses appreciated. Extremities: No clubbing, cyanosis, or edema. Skin: Normal temperature, turgor, and texture; no rash, ulcers, or subcutaneous nodules appreciated. Neurological: Cranial nerves grossly intact. Psychiatric: Normal mood and affect. Alert and oriented to person, place, and time. Objective Labs Result Diagrams: 08/16/19 06:02 08/16/19 06:02 Labs: Laboratory Results - last 24 hr 08/15/19 08/16/19 08/16/19 17:50 06:02 06:02 WBC 4.4 L RBC 3.32 L Hgb 11.8 L 10.5 L Hct 34.6 L 29.4 L MCV 88.5 MCH 31.7 MCHC 35.8 RDW 13.2 Plt Count 187 Neut % (Auto) 61.7 Lymph % (Auto) 27.0 [place] % (Auto) 7.4 Eos % (Auto) 3.6 Baso % (Auto) 0.3 Neut # (Auto) 2700 Lymph # (Auto) 1200 [place] # (Auto) 300 Eos # (Auto) 200 Baso # (Auto) 0 Sodium 141 Potassium 3.5 Chloride 107 Carbon Dioxide 28 BUN 8 L Creatinine 1.00 Estimated GFR > 60.0 BUN/Creatinine Ratio 8.0 Glucose 95 Calcium 8.3 L Discharge Plan Discharge Plan Patient Disposition: Home Discharge comment: You're being discharged home. Your source of bleeding was not found. Your upper and lower endoscopies were negative for source of bleed and did not show any abnormalities other than diverticulosis in your sigmoid colon. Please follow-up with your primary care physician, Dr. Menchaca, regarding your hospitalization and for referral to GI for further evaluation. Please keep an eye on your symptoms and your stool. If you began having dark black stool again or your symptoms are worsening please see your primary care provider or co me back to ED. You had biopsies taken of your stomach which will need to be followed up by your primary care provider, Dr. Menchaca. Discharge orders & Medications Prescriptions: No Action No Known Home Medications RF: 0 Follow up/Referrals: En Menchaca MD [Primary Care Provider] - 08/26/19 11:00 am (appt:08/26 @ 11:[address] menchaca please arrive 15 minutes prior to your scheduled appointment) Diet/Activity/Treatments Diet: Diet as Tolerated and Regular Activity: Activity as tolerated Visit Report/Discharge Packet Instructions: DI for Diverticulosis Discharge Data Primary Care Provider: En Menchaca Attending Provider: Luiza Candelario [employer] Date/Time: 08/14/19 13:51 Discharges patient from system. Discharge Date/Time: 08/16/19 14:04
== END 2019-08-16 14:04 | disposition home or self-care (01) ==
LOC: ED 13:08 → AC 08-15 08:53
PROVIDERS: Nurse Practitioner Adult Health; Surgery; Admitting Provider Internal Medicine; Emergency Provider Emergency Medicine; Family Provider Family Medicine; PCP Family Medicine; Visit Provider Internal Medicine
PROC: 0DJ08ZZ Inspection of Upper Intestinal Tract, Via Natural or Artificial Opening Endoscopic (ICD-10-PCS; CPT 43235; principal; 2019-08-15 09:55)
PROC: 0DJD8ZZ Inspection of Lower Intestinal Tract, Via Natural or Artificial Opening Endoscopic (ICD-10-PCS; CPT 45378; principal; 2019-08-16 11:45)
DX: K29.70 Gastritis, unspecified, without bleeding (principal); K92.1 Melena; R42 Dizziness and giddiness; R06.02 Shortness of breath; K57.30 Diverticulosis of large intestine without perforation or abscess without bleeding; D50.9 Iron deficiency anemia, unspecified; D62 Acute posthemorrhagic anemia
CPT/HCPCS: 43239; 45378; 36415; 80048; 80053; 83540; 83550; 83690; 83735; 85014; 85018; 85025; 85027; 85610; 85730; 86850; 86900; 86901; 93005; 93010; 94762; 96361; 96365; 96366; 96367; 96375; 99152; 99284; G0378; C9113; J0330; J1756; J2250; J2405; J2704; J3010

== ENCOUNTER → 2020-10-06 13:34 | Outpatient (CLI) | payer OTHER, SELFPAY ==
[2019-08-14 15:59] VITALS: BMI 24.7
--- NOTE | 2020-10-06 | DI.CT.S_ITS ---
PROCEDURE: CT HEAD/BRAIN WO CON INDICATIONS: Weakness TECHNIQUE: Noncontrast 4.5 mm thick angled axial sections acquired from the foramen magnum to the vertex, with coronal and sagittal reformats. For radiation dose reduction, the following was used: automated exposure control, adjustment of mA and/or kV according to patient size. COMPARISON: None. FINDINGS: Image quality: Excellent. CSF spaces: Basal cisterns are patent. No extra-axial fluid collections. Ventricles are normal in size and shape. Brain: No midline shift. No intracranial masses or hemorrhage. Funes-white matter interface is normal. Skull and face: Calvarium and visualized facial bones are intact, without suspicious lesions. Sinuses: Visualized sinuses and mastoids are clear. IMPRESSION: Unremarkable intracranial examination. If it would be helpful for clinical management decision making in this patient, please consider a dedicated cervical spine CT or cervical spine MRI, depending upon clinical suspicion (assuming that there is no contraindication). Dictated by: Manohar Woodson M.D. on 10/06/2020 at 13:13 Approved by: Manohar Woodson M.D. on 10/06/2020 at 13:14
== END ==
PROVIDERS: PCP Nurse Practitioner Family; Referring Provider Nurse Practitioner Family; Visit Provider Nurse Practitioner Family
DX: R53.1 Weakness (principal); R20.2 Paresthesia of skin
CPT/HCPCS: 70450

== ENCOUNTER → 2020-10-12 12:06 | Outpatient (CLI) | payer OTHER, SELFPAY ==
[2019-08-14 15:59] VITALS: BMI 24.7
--- NOTE | 2020-10-12 12:08 | DI.MRI.S_ITS ---
PROCEDURE: MR CERVICAL SPINE WO CON INDICATIONS: Weakness TECHNIQUE: Noncontrast sagittal T1 spin echo and T2 fast spin echo, sagittal STIR, foraminal oblique sagittal T2 fast spin echo, and axial gradient echo or T2 fast spin echo through the cervical spine. COMPARISON: None. FINDINGS: Image quality: Excellent. Alignment and Curvature: There is trace retrolisthesis of C5 on C6. Bone Marrow: Marrow demonstrates normal overall signal. Spinal Cord: Visualized spinal cord has normal signal. 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 No cerebellar tonsillar herniation. Paraspinous Soft Tissues: No paravertebral masses. Prevertebral soft tissues are normal in thickness. Discs: [id number] disc space narrowing is present at C5-6 and C6-7. C2-C3: Minimal disc bulge without spinal stenosis. Moderate left and [id number] right foraminal narrowing with uncovertebral hypertrophy. C3-C4: Minimal disc bulge without spinal stenosis. Severe left and moderate to severe right foraminal narrowing with uncovertebral hypertrophy. C4-C5: Mild disc bulge with [id number] spinal stenosis. Severe bilateral foraminal narrowing with uncovertebral hypertrophy. C5-C6: Mild disc bulge with moderate to severe spinal stenosis. Moderate to severe right and severe left foraminal narrowing with uncovertebral hypertrophy. C6-C7: Mild disc bulge with moderate to severe spinal stenosis. Moderate to severe bilateral foraminal narrowing, right greater than left with uncovertebral hypertrophy. C7-T1: No disc bulge, spinal stenosis or foraminal narrowing. IMPRESSION: 1. Multilevel degenerative changes. 2. Multilevel spinal stenosis most severe at C5-6 and C6-7 secondary to disc bulges, as well as congenital stenosis. 3. Multilevel moderate to severe foraminal narrowing secondary to uncovertebral arthropathy. Dictated by: Sarah Velasquez M.D. on 10/12/2020 at 15:38 Approved by: Sarah Velasquez M.D. on 10/12/2020 at 15:57
== END ==
PROVIDERS: PCP Nurse Practitioner Family; Referring Provider Nurse Practitioner Family; Visit Provider Nurse Practitioner Family
DX: M47.812 Spondylosis without myelopathy or radiculopathy, cervical region (principal); M48.02 Spinal stenosis, cervical region; M50.221 Other cervical disc displacement at C4-C5 level; R53.1 Weakness; R20.2 Paresthesia of skin
CPT/HCPCS: 72141